=== PATIENT | female | born 1965 | race Caucasian/White ===

== ENCOUNTER 2021-07-18 19:14 | Inpatient (IN) ==
[2021-07-19 00:32] LABS: Influenza A PCR Negative (Negative); Influenza B PCR Negative (Negative); Resp. Syncytial Virus PCR Negative (Negative)
[2021-07-19 00:36] LABS: SARS-CoV-2 by PCR (In House) Positive (Negative)
[2021-07-19 00:39] LABS: Hematocrit 22.5 % (35.3-44.9); Hemoglobin 6.7 g/dL (11.5-15.4); Mean Corpuscular HGB Conc 29.8 g/dL (31.6-35.5); Mean Corpuscular Hemoglobin 22.7 pg (28.0-33.3); Mean Corpuscular Volume 76.3 fL (83.0-100.0); Mean Platelet Volume 8.3 fL (9.4-12.4); Platelet Count 369 K/mcL (140-400); Red Blood Count 2.95 M/mcL (3.82-4.97); Red Cell Distribution Width 17.5 % (11.5-14.5); White Blood Count 3.4 K/mcL (4.3-11.1)
[2021-07-19 00:56] LABS: BUN/Creatinine Ratio 12 (6-26); Blood Urea Nitrogen 7 mg/dL (6-20); Calcium 8.5 mg/dL (8.6-10.3); Carbon Dioxide 25 mEq/L (23-29); Chloride 87 mEq/L (98-107); Glucose 101 mg/dL (70-105); Osmolality,Calculated 252 (280-300); Potassium 3.2 mEq/L (3.5-5.1); Sodium 122 mEq/L (136-145); eGFR For African Americans > 60 (> 60); eGFR For Non-African Americans > 60 (> 60)
[2021-07-19 00:57] LABS: Troponin I < 0.03 ng/mL (< 0.04)
[2021-07-19 01:04] LABS: Eosinophils # 0.1 K/mcL (0.0-0.6); Platelet Estimate Normal (Normal)
[2021-07-19 01:05] LABS: Large Platelets Present (Not Present); Polychromasia 1+ (Not Present)
[2021-07-19 01:06] LABS: Anisocytosis 1+ (Not Present); Poikilocytosis 1+ (Not Present)
[2021-07-19] MEDS ORDERED: Isovue-370 500 ML BOTTLE IVP ONE ×2 (01:09→05:42)
[2021-07-19] MEDS ORDERED: cefTRIAXone 1,000 MG in 0.9 % Sodium Chloride Mini Bag 100 ML IVPB ONE (02:50)
[2021-07-19] MEDS ORDERED: Azithromycin 500 MG in 0.9 % Sodium Chloride 250 ML IVPB ONE (02:51)
[2021-07-19] MEDS ORDERED: Ondansetron 4 MG/2 ML VIAL IVP ONE (02:54)
[2021-07-19] MEDS ORDERED: Morphine Sulfate 2 MG/ML SYRINGE IVP ONE (02:54)
[2021-07-19] MEDS ORDERED: Dexamethasone Sodium Phos/PF 10 MG/ML VIAL IVP ONE (03:03)
[2021-07-19] MEDS ORDERED: Acetaminophen 325 MG TABLET PO PRN (03:07)
[2021-07-19] MEDS ORDERED: Naloxone 0.4 MG/ML INJ IVP PRN (03:07)
[2021-07-19] MEDS ORDERED: Melatonin 3 MG TABLET PO PRN (03:07)
[2021-07-19] MEDS ORDERED: Ondansetron 4 MG/2 ML VIAL IVP PRN (03:07)
[2021-07-19 04:53] LABS: Basophils % 0.3 %; Eosinophils % 0.3 %; Hemoglobin 6.4 g/dL (11.5-15.4); Immature Granulocytes % 1.4 % (0-4); Lymphocytes # 0.6 K/mcL (0.6-4.6); Lymphocytes % 17.3 %; Mean Corpuscular HGB Conc 29.1 g/dL (31.6-35.5); Mean Corpuscular Hemoglobin 22.3 pg (28.0-33.3); Mean Corpuscular Volume 76.7 fL (83.0-100.0); Mean Platelet Volume 8.7 fL (9.4-12.4); Monocytes # 0.5 K/mcL (0.0-1.3); Monocytes % 13.5 %; Neutrophils # 2.5 K/mcL (1.6-8.9); Platelet Count 378 K/mcL (140-400); Red Blood Count 2.87 M/mcL (3.82-4.97); Red Cell Distribution Width 17.3 % (11.5-14.5); Segmented Neutrophils % 67.2 %; White Blood Count 3.6 K/mcL (4.3-11.1)
[2021-07-19 05:12] LABS: Alanine Aminotransferase 22 Units/L (7-52); Albumin 3.5 g/dL (3.5-5.7); Albumin/Globulin Ratio 1.3 (1.1-2.2); Alkaline Phosphatase 125 Units/L (34-104); Aspartate Amino Transferase 38 Units/L (13-39); BUN/Creatinine Ratio 11 (6-26); Bilirubin,Direct 0.1 mg/dL (0.0-0.2); Bilirubin,Indirect 0.2 mg/dL (0.0-1.0); Bilirubin,Total 0.3 mg/dL (0.3-1.0); Blood Urea Nitrogen 6 mg/dL (6-20); C-Reactive Protein 46 mg/L (Less than 10); Calcium 8.3 mg/dL (8.6-10.3); Carbon Dioxide 25 mEq/L (23-29); Chloride 87 mEq/L (98-107); Globulin 2.6 g/dL (2.4-3.5); Glucose 107 mg/dL (70-105); Magnesium 1.6 mg/dL (1.6-2.6); Osmolality,Calculated 250 (280-300); Phosphorous 2.8 mg/dL (2.7-4.5); Sodium 121 mEq/L (136-145); Total Protein 6.1 g/dL (6.4-8.9); eGFR For African Americans > 60 (> 60); eGFR For Non-African Americans > 60 (> 60)
[2021-07-19] MEDS ORDERED: Perflutren Lipid Microsphere 1.3 ML in 0.9 % Sodium Chloride 8.7 ML IVP PRN (05:39)
[2021-07-19] MEDS ORDERED: *HR* Enoxaparin 40 MG/0.4 ML SYRINGE SQ SCH (06:00)
[2021-07-19] MEDS ORDERED: 0.9 % Sodium Chloride 250 ML ONE (06:49)
[2021-07-19 07:00] LABS: INR 1.2; Prothrombin Time 12.9 Seconds (9.4-12.1)
[2021-07-19 07:09] LABS: Lactate Dehydrogenase 186 Units/L (140-271)
[2021-07-19 07:10] LABS: Uric Acid 3.8 mg/dL (2.3-7.6)
[2021-07-19 07:24] LABS: Thyroid Stimulating Hormone 0.989 mcIU/mL (0.340-5.600)
[2021-07-19] MEDS ORDERED: D5% in Water 1,000 ML IVC PRN (08:45)
[2021-07-19] MEDS ORDERED: *HR* Dextrose 50 % in Water (Syg) 50 ML SYRINGE IVP PRN (08:45)
[2021-07-19] MEDS ORDERED: Dextrose Gel 15 GM/37.5 ML TUBE PO PRN ×2 (08:45)
[2021-07-19] MEDS ORDERED: *HR* LORazepam 0.5 MG TABLET PO PRN (08:48)
[2021-07-19 10:50] LABS: Folate 15.4 ng/mL (3.0-16.0)
[2021-07-19 10:53] LABS: Vitamin B12 > 1500 pg/mL (250-1100)
[2021-07-19 12:38] LABS: Hematocrit 27.4 % (35.3-44.9)
[2021-07-19 12:41] LABS: Hemoglobin 8.2 g/dL (11.5-15.4)
[2021-07-19 15:03] LABS: RBC,Pleural Fluid 2000 RBC/mcL
[2021-07-19 15:05] LABS: Appearance of Pleural Fl Clear (Clear)
[2021-07-19 16:20] LABS: Total Protein,Pleural Fluid 3.3 g/dL
[2021-07-19] MEDS: *HR* HYDROcodone/Acet 5/325 mg TABLET PO PRN (16:52)
[2021-07-19] MEDS: Pantoprazole 40 MG VIAL IVP SCH (16:53)
[2021-07-19 19:58] LABS: Neutrophils # 1.6 K/mcL (1.6-8.9)
[2021-07-19 19:59] LABS: Lymphocytes # 1.5 K/mcL (0.6-4.6)
[2021-07-19 20:00] LABS: Monocytes # 0.1 K/mcL (0.0-1.3)
[2021-07-20] MEDS: Pantoprazole 40 MG VIAL IVP SCH ×2 (04:18→17:06)
[2021-07-20] MEDS: *HR* HYDROcodone/Acet 5/325 mg TABLET PO PRN ×3 (05:02→21:02)
[2021-07-20 05:25] LABS: Bilirubin,Urine Negative (Negative); Blood,Urine Large (Negative); Clarity,Urine Clear (Clear); Color,Urine Light-Yellow (Yellow); Glucose,Urine (UA) Normal (Normal); Ketones,Urine Negative (Negative); Leukocyte Esterase,Urine Moderate (Negative); Nitrite,Urine Negative (Negative); PH,Urine 6.5 pH Units (5.0-8.0); Protein,Urine Trace mg/dL (Neg-Trace); RBC,Urine 50-100 per hpf (0-3); Renal Epithelial Cells,Urine Few per hpf (None-Few); Specific Gravity,Urine 1.013 (1.010-1.025); Squamous Epithelial Cell,Urine Few per hpf (None-Few); Transitional Epi Cells,Urine Few per hpf (None-Few); Urobilinogen,Urine Normal (Normal)
[2021-07-20] MEDS ORDERED: cefTRIAXone 2,000 MG in Water for inj. (sterile) 20 ML IVP SCH (06:00)
[2021-07-20] MEDS ORDERED: Azithromycin 500 MG in 0.9 % Sodium Chloride 250 ML IVPB SCH (06:00)
[2021-07-20 09:45] LABS: Basophils % 0.4 %; Hematocrit 28.7 % (35.3-44.9); Hemoglobin 8.6 g/dL (11.5-15.4); Immature Granulocytes % 1.1 % (0-4); Lymphocytes # 1.6 K/mcL (0.6-4.6); Mean Corpuscular Hemoglobin 23.9 pg (28.0-33.3); Mean Corpuscular Volume 79.7 fL (83.0-100.0); Mean Platelet Volume 8.4 fL (9.4-12.4); Monocytes # 0.7 K/mcL (0.0-1.3); Monocytes % 13.9 %; Platelet Count 480 K/mcL (140-400); Red Cell Distribution Width 17.6 % (11.5-14.5); Segmented Neutrophils % 55.6 %; White Blood Count 5.3 K/mcL (4.3-11.1)
[2021-07-20] MEDS: Benzonatate 100 MG CAPSULE PO PRN ×2 (11:26→21:05)
[2021-07-20] MEDS ORDERED: Gadolinium Contrast Agent (WT Based) IV PRN (12:12)
[2021-07-20 15:27] LABS: Iron < 10 mcg/dL (50-170); Transferrin 304 mg/dL (203-362)
[2021-07-20] MEDS ORDERED: GADOBUTROL 30 MMOL/30 ML VIAL IVP ONE (20:09)
[2021-07-21 02:30] LABS: Basophils % 0.4 %; Eosinophils % 0.2 %
[2021-07-21 02:32] LABS: Hematocrit 28.6 % (35.3-44.9); Hemoglobin 8.4 g/dL (11.5-15.4); Immature Granulocytes % 0.9 % (0-4); Lymphocytes # 1.8 K/mcL (0.6-4.6); Lymphocytes % 31.7 %; Mean Corpuscular HGB Conc 29.4 g/dL (31.6-35.5); Mean Corpuscular Hemoglobin 23.6 pg (28.0-33.3); Mean Corpuscular Volume 80.3 fL (83.0-100.0); Mean Platelet Volume 9.3 fL (9.4-12.4); Monocytes % 20.5 %; Neutrophils # 2.6 K/mcL (1.6-8.9); Platelet Count 474 K/mcL (140-400); Red Blood Count 3.56 M/mcL (3.82-4.97); Red Cell Distribution Width 17.7 % (11.5-14.5); Segmented Neutrophils % 46.3 %; White Blood Count 5.6 K/mcL (4.3-11.1)
[2021-07-21 02:44] LABS: Monocytes # 1.2 K/mcL (0.0-1.3)
[2021-07-21 02:46] LABS: BUN/Creatinine Ratio 15 (6-26); Blood Urea Nitrogen 10 mg/dL (6-20); Calcium 8.7 mg/dL (8.6-10.3); Carbon Dioxide 29 mEq/L (23-29); Chloride 97 mEq/L (98-107); Glucose 97 mg/dL (70-105); Osmolality,Calculated 275 (280-300); Potassium 4.2 mEq/L (3.5-5.1); Sodium 133 mEq/L (136-145); eGFR For African Americans > 60 (> 60); eGFR For Non-African Americans > 60 (> 60)
[2021-07-21 03:10] LABS: Anisocytosis 1+ (Not Present)
[2021-07-21] MEDS: Pantoprazole 40 MG VIAL IVP SCH (06:04)
[2021-07-21] MEDS: *HR* HYDROcodone/Acet 5/325 mg TABLET PO PRN (06:05)
[2021-07-21] MEDS ORDERED: dexAMETHasone 4 MG TABLET PO SCH (09:00)
[2021-07-21 11:06] VITALS: O2SAT 92
[2021-07-21 15:52] VITALS: BP 144/82; PULSE 99; TEMP 97.7
[2021-07-23 05:45] LABS: Fluid Source for Cholesterol PLEURAL FLUID
[2021-07-23 06:44] LABS: Cholesterol,Body Fluid 52 mg/dL
== END 2021-07-21 17:20 | disposition home or self-care (01) | DRG 871 ==
LOC: EMEROOARM 19:14 → 2ANU 07-19 03:28
PROVIDERS: ADMIT Internal Medicine; ATTEND Internal Medicine